=== PATIENT | male | born 1985 | race Caucasian/White ===

== ENCOUNTER 2016-05-17 23:43 | Emergency (ER) | payer MEDICAID ==
[~2016-05-17] VITALS: Ht 170.2 cm; Wt 88.9 kg
[2016-05-17 23:49] VITALS: Ht 170.2 cm; Wt 88.9 kg
--- NOTE | 2016-05-18 01:52 | ERD ---
ER Documentation Chief Complaint Date/Time DATE: 05/18/16 TIME: 01:47 Chief Complaint NUMBNESS IN CENTER OF CHEST. HX OF ANXIETY PER PATIENT W/ SAME SYMPTOMS HPI 31-year-old male presents to emergency department for complaints of numbness in the mid chest area and burning pain started tonight and palpitations. Patient has history of anxiety, had symptoms like this before. Patient states that his symptoms improved and now, burning sensation has improved. Patient complains of burning pain, 3/10 scale, accompanied with palpitations. ROS All systems reviewed and are negative except as per history of present illness. Medications Home Meds Reported Medications [none] Unknown Strength No Conflict Check 05/18/16 Allergies Allergies: Coded Allergies: No Known Allergy (Unverified , 05/18/16) PMhx/Soc Medical and Surgical Hx: pt denies Medical Hx, pt denies Surgical Hx FmHx Family History: No coronary disease, No diabetes, No other Physical Exam Vitals Vital Signs Date Time Temp Pulse Resp B/P Pulse Ox O2 Delivery O2 Flow Rate FiO2 05/17/16 23:49 97.8 110 20 133/88 99 Physical Exam GENERAL: The patient is well developed and appropriate for usual state of health, in no apparent distress. CHEST: Clear to auscultation bilaterally. There are no rales, wheezes or rhonchi. HEART: Regular rate and rhythm. No murmurs, clicks, rubs or gallops. No S3 or S4. ABDOMEN: Soft, nontender and nondistended. Good bowel sounds. No rebound or guarding. No gross peritonitis. No gross organomegaly or masses. No Garcia sign or McBurney point tenderness. BACK: No midline or flank tenderness. EXTREMITIES: Equal pulses bilaterally. There is no peripheral clubbing, cyanosis or edema. No focal swelling or erythema. Full range of motion. Grossly neurovascularly intact. NEURO: Alert and oriented. Cranial nerves 2-12 intact. Motor strength in all 4 extremities with 5/5 strength. Sensation grossly intact. Normal speech and gait. SKIN: There is no apparent rash or petechia. The skin is warm and dry. HEMATOLOGIC AND LYMPHATIC: There is no evidence of excessive bruising or lymphedema. No gross cervical, axillary, or inguinal lymphadenopathy. Results 24 hrs EKG was done, read by me and is sinus tachycardia 111 beats per minute, normal axis, there is no ST changes or changes in the EKG that indicates any cardiac emergencies at this time. Patient's EKG was also reviewed by . Impression: no acute findings on EKG ROCEDURE: CHEST - 1 VIEW CLINICAL INDICATION: 30-year-old male with chest pain. TECHNIQUE: A single frontal AP view of the chest was performed portably. The images were reviewed on a PACS workstation. COMPARISON: None. FINDINGS: The cardiomediastinal silhouette has a normal appearance. There is no evidence for an infiltrate. The pulmonary vascularity is within normal limits. There is no evidence for pneumothorax or pneumomediastinum. The osseous structures are intact. IMPRESSION: No evidence for active cardiopulmonary disease. .Jacob Mcmahon MD, Date Time Electronically viewed and signed by .Jacob Mcmahon MD, on 05/18/2016 02:44 .M/ CC: RADHIKA ANDERSEN NP Procedures/MDM Medical Decision Making: Patient's symptoms will likely consistent with possible anxiety, nonspecific at this time. Further evaluation by behavior support specialist as recommended, patient Holter monitoring is recommended There is low suspicion for cardiopulmonary emergencies at this time. Patient has low risk factors. EKG is normal, there is no changes in the EKG that indicates cardiac emergencies. Chest X-ray does not show cardiopulmonary emergencies at this time. There is low suspicion for aortic aneurysm, myocardial infarction, pneumothorax, pleural effusion, pulmonary embolism, or any other cardiopulmonary emergencies at this time. Departure Diagnosis: Primary Impression: Palpitations Additional Impression: Atypical chest pain Condition: Stable Patient Instructions: Chest Pain, Uncertain Cause, Palpitations RADHIKA ANDERSEN NP May 18, 2016 01:51
--- NOTE | 2016-05-18 02:45 | RADRPT ---
PROCEDURE: CHEST - 1 VIEW CLINICAL INDICATION: 30-year-old male with chest pain. TECHNIQUE: A single frontal AP view of the chest was performed portably. The images were reviewed on a PACS workstation. COMPARISON: None. FINDINGS: The cardiomediastinal silhouette has a normal appearance. There is no evidence for an infiltrate. T he pulmonary vascularity is within normal limits. There is no evidence for pneumothorax or pneumomed iastinum. The osseous structures are intact. IMPRESSION: No evidence for active cardiopulmonary disease. .Jacob Mcmahon MD, MD Date Time Electronically viewed and signed by .Jacob Mcmahon MD, on 05/18/2016 02:44 .M/
== END 2016-05-18 03:52 | disposition left against medical advice (07) ==
LOC: FTE 23:43
DX: R00.2 Palpitations (principal); R07.89 Other chest pain
CPT/HCPCS: 71010; 93005; Z7502